=== PATIENT | female | born 1945 | race Caucasian/White ===

== ENCOUNTER 2021-09-21 21:19 | Emergency (ER) | payer BC, MEDICARE ==
[2021-09-21] MEDS ORDERED: Sodium Chloride 0.9% 10 ML Syringe FLUSH PRN (21:24)
[2021-09-21 22:02] LABS: PTT,PARTIAL THROMBOPLSTIN TIME 25.1 SEC (20.5-30.9)
[2021-09-21 22:09] LABS: ANION GAP 11.7 mmol/L (5-15); CHLORIDE,CL 104 mmol/L (98-107); SODIUM,NA 142 mmol/L (136-145)
[2021-09-21] MEDS ORDERED: Iopamidol 755 Mg/ML 100 ML Bottle IVPUSH ONE (22:21)
[2021-09-21 22:45] LABS: CORONAVIRUS COVID-19 NAA NEGATIVE (NEGATIVE)
[2021-09-21 22:46] LABS: RESPIRATORY SYNCYTIAL VIR NAA NEGATIVE (NEGATIVE)
== END 2021-09-22 01:00 | disposition short-term general hospital (02) ==
LOC: VM.ED 21:19
DX: R53.1 Weakness (principal); R40.4 Transient alteration of awareness; Z20.822 Contact with and (suspected) exposure to COVID-19; Z79.899 Other long term (current) drug therapy
CPT/HCPCS: 0241U; 36415; 70450; 80053; 83735; 84484; 85025; 85610; 85730; 99284; 99285-25

== ENCOUNTER 2022-01-13 13:19 | Emergency (ER) | payer BC ==
[2022-01-13 13:56] VITALS: BP 125/69; PULSE 83
[2022-01-13] MEDS ORDERED: Iopamidol 612 MG/ML 100 ML Bottle IVPUSH ONE (14:45)
[2022-01-13] MEDS ORDERED: Sodium Chloride 0.9% 10 ML Syringe FLUSH PRN (14:47)
[2022-01-13 14:55] LABS: CHLORIDE,CL 100 mmol/L (98-107); SODIUM,NA 140 mmol/L (136-145)
[2022-01-13 15:04] LABS: ANION GAP 16.2 mmol/L (5-15); ESTIMATED GFR 39 mL/min (>=60)
== END 2022-01-13 17:26 | disposition home or self-care (01) ==
LOC: VM.ED 13:19
DX: R13.19 Other dysphagia (principal); R07.0 Pain in throat; E78.00 Pure hypercholesterolemia, unspecified; I10 Essential (primary) hypertension; J44.9 Chronic obstructive pulmonary disease, unspecified; E03.9 Hypothyroidism, unspecified; Z88.8 Allergy status to other drugs, medicaments and biological substances; Z87.891 Personal history of nicotine dependence
CPT/HCPCS: 36415; 70491; 80053; 85025; 99283; 99284; Q9967

== ENCOUNTER 2024-07-31 11:42 | Inpatient (IN) | payer BC ==
[2024-07-31] MEDS ORDERED: Sodium Chloride 0.9% 10 ML Syringe FLUSH PRN (11:49)
[2024-07-31] MEDS: Acetaminophen 500 MG Tab PO ONE (11:54)
[2024-07-31 12:10] LABS: BASOPHILS PERCENT AUTO 0.3 % (0.2-1.2); EOSINOPHILS ABSOLUTE AUTO 0.1 x10^3/uL (0.0-0.5); EOSINOPHILS PERCENT AUTO 0.7 % (0.0-4.0); HEMATOCRIT 42.3 % (33.0-47.0); IMMATURE GRAN ABSOLUTE AUTO 0.02 x10^3/uL (0.00-0.07); LYMPHOCYTES PERCENT AUTO 7.8 % (25.0-50.0); MEAN CORPUSCULAR HEMOGLOBIN 28.9 pg (26.0-32.0); MEAN CORPUSCULAR HGB CONC 33.1 g/dL (32.0-36.0); MEAN CORPUSCULAR VOLUME 87.2 fL (78.0-93.0); MONOCYTES ABSOLUTE AUTO 0.5 x10^3/uL (0.0-0.8); NEUTROPHILS ABSOLUTE AUTO 10.6 x10^3/uL (1.8-7.7); PLATELET COUNT,PLT 262 x10^3/uL (130-400); RED BLOOD CELL COUNT 4.85 x10^6/uL (4.00-5.50); WHITE BLOOD CELL COUNT,WBC 12.1 x10^3/uL (4.0-10.0)
[2024-07-31] MEDS: Ondansetron 4 MG/2 ML SDV IVPUSH ONE (12:23)
[2024-07-31] MEDS: Labetalol 20 MG/4 ML Syringe IVPUSH ONE ×2 (12:28→13:23)
[2024-07-31] MEDS: cefTRIAXone 1 GM Vial IVPUSH ONE (12:29)
[2024-07-31 12:30] LABS: PROTHROMBIN TIME 10.4 SEC (9.6-12.0); PTT,PARTIAL THROMBOPLSTIN TIME 28.3 SEC (23.5-33.2)
[2024-07-31 12:34] LABS: LACTIC ACID 2.6 mmol/L (0.4-2.0)
[2024-07-31 12:42] LABS: A/G RATIO 1.08; ALANINE AMINOTRANSFERASE,ALT 23 U/L (14-59); ALKALINE PHOSPHATASE 106 U/L (46-116); ASPARTATE AMNIOTRANSFERASE,AST 22 U/L (15-37); BILIRUBIN TOTAL 0.6 mg/dL (0.2-1.0); BLOOD UREA NITROGEN,BUN 17 mg/dL (7-18); CALCIUM 9.6 mg/dL (8.5-10.1); CARBON DIOXIDE,CO2 31 mmol/L (21-32); CHLORIDE,CL 102 mmol/L (98-107); CREATININE 1.3 mg/dL (0.55-1.02); GLUCOSE RANDOM 110 mg/dL (70-99); MAGNESIUM 1.7 mg/dL (1.8-2.4); PRO B-TYPE NATRIUR PEPT,BNPPRO 2036 pg/mL (<=450); PROTEIN TOTAL,TP 7.7 g/dL (6.4-8.2); SODIUM,NA 145 mmol/L (136-145)
[2024-07-31 12:44] LABS: C-REACTIVE PROTEIN < 0.50 mg/dL (<=0.50); ESTIMATED GFR 42 mL/min (>=60)
[2024-07-31] MEDS: methylPREDNISolone Sodium Succinate 125 MG/2 ML SDV IVPUSH ONE (13:23)
[2024-07-31] MEDS: Lactated Ringers 1,000 ML IV ONE (13:23)
[2024-07-31] MEDS ORDERED: Polyethylene Glycol 3350 Powder 17 GM Packet PO PRN (14:54)
[2024-07-31] MEDS ORDERED: Albuterol/Ipratropium 3.0-0.5 MG/3 ML Neb Soln NEB PRN (14:54)
[2024-07-31] MEDS ORDERED: Ondansetron 4 MG/2 ML SDV IV PRN (14:54)
[2024-07-31] MEDS ORDERED: Acetaminophen 325 MG Tab PO PRN (14:58)
[2024-07-31] MEDS: Azithromycin 500 MG in Sodium Chloride 0.9% 250 ML IV SCH (15:47)
[2024-07-31] MEDS: cefTRIAXone 1 GM Vial IVPUSH SCH (19:15)
[2024-07-31] MEDS: Melatonin 3 MG Tab PO PRN (21:31)
[2024-08-01 08:03] LABS: BASOPHILS PERCENT AUTO 0.1 % (0.2-1.2); HEMATOCRIT 32.2 % (33.0-47.0); HEMOGLOBIN 10.6 g/dL (12.0-16.0); IMMATURE GRAN ABSOLUTE AUTO 0.03 x10^3/uL (0.00-0.07); LYMPHOCYTES ABSOLUTE AUTO 0.7 x10^3/uL (1.0-4.8); LYMPHOCYTES PERCENT AUTO 5.3 % (25.0-50.0); MEAN CORPUSCULAR HEMOGLOBIN 28.4 pg (26.0-32.0); MEAN CORPUSCULAR HGB CONC 32.9 g/dL (32.0-36.0); MEAN CORPUSCULAR VOLUME 86.3 fL (78.0-93.0); MONOCYTES ABSOLUTE AUTO 0.8 x10^3/uL (0.0-0.8); MONOCYTES PERCENT AUTO 5.9 % (2.0-11.0); NEUTROPHILS PERCENT AUTO 88.5 % (50.0-80.0); PLATELET COUNT,PLT 205 x10^3/uL (130-400); RED BLOOD CELL COUNT 3.73 x10^6/uL (4.00-5.50); WHITE BLOOD CELL COUNT,WBC 13.5 x10^3/uL (4.0-10.0)
[2024-08-01 08:09] LABS: CALCIUM 8.6 mg/dL (8.5-10.1); CREATININE 1.3 mg/dL (0.55-1.02); EST CRCL DRUG DOSING (CG) 34.7 mL/min; MAGNESIUM 1.8 mg/dL (1.8-2.4); POTASSIUM,K 3.5 mmol/L (3.5-5.1)
[2024-08-01 08:10] LABS: ANION GAP 12.5 mmol/L (5-15)
[2024-08-01] MEDS ORDERED: cefTRIAXone 1 GM Vial IVPUSH SCH (09:00)
[2024-08-01] MEDS: Azithromycin 250 MG Tab PO SCH (12:13)
[2024-08-01] MEDS: Amoxicillin/Clavulanate K 875-125 MG Tab PO ONE (12:13)
[2024-08-01] MEDS: predniSONE 20 MG Tab PO SCH (12:13)
[2024-08-01 18:30] LABS: APPEARANCE,URINE SLIGHTLY CLOUDY (CLEAR); BILIRUBIN,URINE NEGATIVE (NEGATIVE); COLOR,URINE DARK YELLOW (YELLOW); GLUCOSE,URINE NEGATIVE (NEGATIVE); KETONES,URINE TRACE mg/dL (NEGATIVE); LEUKOCYTE ESTERASE,URINE TRACE (NEGATIVE); NITRITE,URINE NEGATIVE (NEGATIVE); OCCULT BLOOD,URINE NEGATIVE (NEGATIVE); PH,URINE 6.5 (5.0-8.0); PROTEIN,URINE 30 mg/dL (NEGATIVE); UROBILINOGEN,URINE 0.2 EU/dL (0.2)
[2024-08-01 18:32] LABS: BACTERIA,URINE OCCASIONAL /HPF (NOT SEEN); MUCUS,URINE OCCASIONAL /LPF (NOT SEEN); RBC,URINE 0-5 /HPF (NOT SEEN); SQUAMOUS EPITHELIAL CELLS,UR OCCASIONAL /HPF (NOT SEEN)
[2024-08-01] MEDS: Amoxicillin/Clavulanate K 875-125 MG Tab PO SCH (21:23)
[2024-08-01] MEDS ORDERED: diphenhydrAMINE 25 MG Cap PO PRN (22:26)
[2024-08-01] MEDS: Montelukast 10 MG Tab PO SCH (22:42)
[2024-08-01] MEDS: Gabapentin 300 MG Cap PO SCH (22:43)
[2024-08-02] MEDS: hydrALAZINE 25 MG Tab PO PRN (03:27)
[2024-08-02] MEDS: Enalaprilat 1.25 MG/ML SDV IVPUSH ONE (05:06)
[2024-08-02] MEDS: Levothyroxine 88 MCG Tab PO SCH (06:22)
[2024-08-02 07:38] LABS: CALCIUM 9.1 mg/dL (8.5-10.1); CREATININE 1.1 mg/dL (0.55-1.02); EST CRCL DRUG DOSING (CG) 41.15 mL/min; POTASSIUM,K 3.9 mmol/L (3.5-5.1)
[2024-08-02 07:39] LABS: ANION GAP 12.9 mmol/L (5-15)
[2024-08-02 07:54] LABS: HEMATOCRIT 35.8 % (33.0-47.0); HEMOGLOBIN 11.9 g/dL (12.0-16.0); IMMATURE GRAN ABSOLUTE AUTO 0.03 x10^3/uL (0.00-0.07); LYMPHOCYTES ABSOLUTE AUTO 0.6 x10^3/uL (1.0-4.8); LYMPHOCYTES PERCENT AUTO 5.3 % (25.0-50.0); MEAN CORPUSCULAR HEMOGLOBIN 28.8 pg (26.0-32.0); MEAN CORPUSCULAR HGB CONC 33.2 g/dL (32.0-36.0); MEAN CORPUSCULAR VOLUME 86.7 fL (78.0-93.0); MONOCYTES ABSOLUTE AUTO 0.2 x10^3/uL (0.0-0.8); MONOCYTES PERCENT AUTO 1.6 % (2.0-11.0); NEUTROPHILS PERCENT AUTO 92.8 % (50.0-80.0); PLATELET COUNT,PLT 231 x10^3/uL (130-400); RED BLOOD CELL COUNT 4.13 x10^6/uL (4.00-5.50); WHITE BLOOD CELL COUNT,WBC 11.8 x10^3/uL (4.0-10.0)
[2024-08-02] MEDS: Lisinopril 10 MG Tab PO SCH (08:30)
[2024-08-02] MEDS: Donepezil 10 MG Tab PO SCH (08:32)
[2024-08-02] MEDS: Enalaprilat 1.25 MG/ML SDV IVPUSH PRN (10:05)
[2024-08-02 14:56] VITALS: BP 227/91; PULSE 78
[2024-08-03] MEDS ORDERED: Lisinopril 20 MG Tab PO SCH (09:00)
== END 2024-08-02 14:50 | disposition home or self-care (01) | DRG 139 ==
LOC: VM.ED 11:42 → VM.MS 13:23
PROVIDERS: ADMIT Physician Assistant; ATTEND Family Medicine
DX: J18.9 Pneumonia, unspecified organism (principal); E87.20 Acidosis, unspecified; I13.0 Hypertensive heart and chronic kidney disease with heart failure and stage 1 through stage 4 chronic kidney disease, or unspecified chronic kidney disease; J44.0 Chronic obstructive pulmonary disease with (acute) lower respiratory infection; J44.1 Chronic obstructive pulmonary disease with (acute) exacerbation; I50.9 Heart failure, unspecified; F03.90 Unspecified dementia, unspecified severity, without behavioral disturbance, psychotic disturbance, mood disturbance, and anxiety; E03.9 Hypothyroidism, unspecified; E78.00 Pure hypercholesterolemia, unspecified; N18.9 Chronic kidney disease, unspecified; Z85.819 Personal history of malignant neoplasm of unspecified site of lip, oral cavity, and pharynx; Z88.8 Allergy status to other drugs, medicaments and biological substances; Z79.82 Long term (current) use of aspirin; Z79.51 Long term (current) use of inhaled steroids; Z79.899 Other long term (current) drug therapy; Z85.828 Personal history of other malignant neoplasm of skin; Z98.890 Other specified postprocedural states
CPT/HCPCS: 36415; 71045; 80048; 80053; 81001; 82140; 83605; 83735; 83880; 84443; 84484; 85025; 85610; 85730; 86140; 87040; 87086; 87428-QW; 93005; 93010; 94760; 96374; 96375; 99238; 99284; 99285-25; A9270-GY; J0456; J0696; J1920; J2405; J2919; J3490; J7050; J7120; J7512